=== PATIENT | male | born 1970 | race Caucasian/White ===

== ENCOUNTER 2018-02-07 17:03 | Emergency (ER) | payer OTHER ==
[~2018-02-07] VITALS: Ht 167.6 cm; Wt 104.8 kg
[2018-02-07 17:13] VITALS: BP 112/73; Ht 167.6 cm; Wt 104.8 kg
== END 2018-02-07 18:58 | disposition home or self-care (01) ==
LOC: ED 17:03
DX: S52.612A Displaced fracture of left ulna styloid process, initial encounter for closed fracture (principal); W18.39XA Other fall on same level, initial encounter; Y93.89 Activity, other specified; Y92.89 Other specified places as the place of occurrence of the external cause; Y99.8 Other external cause status
CPT/HCPCS: 90715; J2270; Q0162

== ENCOUNTER 2018-08-02 18:32 | Emergency (ER) | payer SELFPAY ==
[~2018-08-02] VITALS: Ht 167.6 cm; Wt 107.5 kg
[2018-08-02 18:40] VITALS: Ht 167.6 cm; Wt 107.5 kg
[2018-08-02 20:17] VITALS: BP 142/93
== END 2018-08-02 21:14 | disposition home or self-care (01) ==
LOC: ED 18:32
DX: H10.13 Acute atopic conjunctivitis, bilateral (principal); R55 Syncope and collapse